=== PATIENT | female | born 1960 | race Caucasian/White ===

== ENCOUNTER 2021-09-21 06:00 | Day surgery (SDC) | payer OTHER, SELFPAY ==
[2021-09-15 10:58] VITALS: BMI 31.0
--- NOTE | 2021-09-20 09:09 | HO.ANESPROP2 ---
Documented by User: Carola Cook NP 09/20/21 09:09 HPI - Anesthesia Eval Consult details Narrative: 60yo F for Right 1st Metatarsal ORIF, cheilectomy 1st MP joint PCP Cleared PMFSH Past Medical History Medical History (Updated 09/21/21 @ 08:12 by Lydia Gandhi MD) Asthma Elevated cholesterol GERD (gastroesophageal reflux disease) Glaucoma History of COVID-19 Posterior vitreous detachment of both eyes Sleep apnea Surgical History Surgical History (Updated 09/15/21 @ 10:53 by Cesia Bingham RN) H/O colonoscopy History of History of esophagogastroduodenoscopy (EGD) Hx of appendectomy Hx of dilation and curettage Hx of total hysterectomy with removal of both tubes and ovaries Hx of tubal ligation Social History Social History (Updated 09/15/21 @ 10:57 by Cesia Bingham RN) Patient Tobacco Use Status: Never used Tobacco Use of substances other than those prescribed or required for medical reasons: No Are you DNR?: No Advance Directives: No Advance Directives Information Provided: Yes Recently lost weight without trying: No Nutrition Risks: No Nutritional Risk Meds Allergies Allergy/AdvReac Type Severity Reaction Status Date / Time Seasonal Allergies Allergy Intermediate Itchy Verified 09/15/21 10:56 Eyes/congestion Home Medications Medication Instructions Recorded Confirmed Last Taken Type albuterol sulfate 90 mcg/actuation 2 puff inhalation QID PRN Wheezing 09/15/21 09/15/21 Unknown History aerosol inhaler (Ventolin HFA) fluticasone propionate 100 1 inh inhalation BID 09/15/21 09/15/21 Unknown History mcg/actuation blister powder for inhalation (Flovent Diskus) loratadine 5 mg-pseudoephedrine ER 1 tab PO Q12H PRN Allergy Symptoms 09/15/21 09/15/21 Unknown History 120 mg tablet,extended release,12hr (Claritin-D 12 Hour) sulindac 150 mg tablet 150 mg PO BID PRN Pain 09/15/21 09/15/21 Unknown History Exam Exam Date and Time: September 20, 2021 09 Height,Weight and Vital Signs: Height 5 ft 5 in Weight 84.7 kg Assessment and Plan Assessment Anesthesia Assessment: Chart Reviewed Documented by User: Lydia Gandhi MD 09/21/21 08:14 PMF Active Problems Active Problems: Asthma- inhaler last used last year JERICA on CPAP Past Medical History Medical History (Updated 09/21/21 @ 08:12 by Lydia Gandhi MD) Asthma Elevated cholesterol GERD (gastroesophageal reflux disease) Glaucoma History of COVID-19 Posterior vitreous detachment of both eyes Sleep apnea Family History Family history of problems with anesthesia: No Surgical History Surgical History (Updated 09/15/21 @ 10:53 by Cesia Bingham RN) H/O colonoscopy History of History of esophagogastroduodenoscopy (EGD) Hx of appendectomy Hx of dilation and curettage Hx of total hysterectomy with removal of both tubes and ovaries Hx of tubal ligation History of Problems with Anesthesia: No Social History Social History (Updated 09/15/21 @ 10:57 by Cesia Bingham RN) Patient Tobacco Use Status: Never used Tobacco Use of substances other than those prescribed or required for medical reasons: No Are you DNR?: No Advance Directives: No Advance Directives Information Provided: Yes Recently lost weight without trying: No Nutrition Risks: No Nutritional Risk Meds Allergies Allergy/AdvReac Type Severity Reaction Status Date / Time Seasonal Allergies Allergy Intermediate Itchy Verified 09/15/21 10:56 Eyes/congestion Home Medications Medication Instructions Recorded Confirmed Last Taken Type albuterol sulfate 90 mcg/actuation 2 puff inhalation QID PRN Wheezing 09/15/21 09/15/21 Unknown History aerosol inhaler (Ventolin HFA) fluticasone propionate 100 1 inh inhalation BID 09/15/21 09/15/21 Unknown History mcg/actuation blister powder for inhalation (Flovent Diskus) loratadine 5 mg-pseudoephedrine ER 1 tab PO Q12H PRN Allergy Symptoms 09/15/21 09/15/21 Unknown History 120 mg tablet,extended release,12hr (Claritin-D 12 Hour) sulindac 150 mg tablet 150 mg PO BID PRN Pain 07/28/22 07/28/22 Unknown History Exam Height,Weight and Vital Signs: Height 5 ft 5 in Weight 84.7 kg Vital Signs Temp Pulse Resp BP Pulse Ox O2 Del Method 09/21/21 07:35 97.6 F 87 16 160/87 H 99 Room Air Airway Mallampati Class: II TM Dist: >3cm Neck ROM: Full Loose/Missing/Broken Teeth: No (No loose or broken teeth per patient ) Heart: RRR Lungs: CTAB Assessment and Plan Assessment Anesthesia Assessment: Anesthesia Plan Discussed Final Anesthetic Review Family History of Problems with Anesthesia: No History of Problems with Anesthesia: No NPO: Yes ASA Class: III Final Preanesthetic Review: No Changes in Pt Med Stat, Meds/Allgs Chart Reviewed, Consent Obtained/Reviewed and Anes Risks/Benef Reviewed Patient Risk: Intermediate Procedure Risk: Low Assessment/Block/Sedation in SS: Assess/Block/Sedation-SS Anesthetic Plan Anesthetic Plan: MAC: Disposition: Standard PACU
--- NOTE | ~2021-09-21 | FL_ITS ---
EXAMINATION: XR FLUOROSCOPY WITH IMAGES CLINICAL INFORMATION: Right 1st metatarsal ORIF COMPARISON: None. TECHNIQUE: Fluoroscopy performed by Hubert Botello. Fluoroscopy time: 16.7 seconds. Cumulative Dose: 0.3307 mGy DAP: 0.02 Gy-cm2. Images: 1. FINDINGS: AP view of the toes. There is air in the soft tissues adjacent to the 1st MTP joint. There is arthritis at the 1st MTP joint. FL/FL guidance in OR IMPRESSION: Intraoperative fluoroscopic guidance provided.
[2021-09-21 06:12] VITALS: BMI 29.8
[2021-09-21] MEDS: Lactated Ringers 1,000 ML 100 ML IVCONT (06:36)
[2021-09-21 07:35] VITALS: BP 160/87; PULSE 87; RESP 16; TEMP 36.4; O2SAT 99
[2021-09-21 08:51] VITALS: BP 120/71; PULSE 81; RESP 16; TEMP 36.4; O2SAT 99
[2021-09-21 08:56] VITALS: BP 127/82; PULSE 78; RESP 18; O2SAT 97
[2021-09-21 09:02] VITALS: BP 124/88; PULSE 74; RESP 18; O2SAT 99
[2021-09-21 09:06] VITALS: BP 116/83; PULSE 68; RESP 16; O2SAT 99
[2021-09-21 09:21] VITALS: BP 126/67; PULSE 70; RESP 16; TEMP 36.4; O2SAT 100
--- NOTE | 2021-09-22 11:20 | OP_ITS ---
SURGEON: Conor Jeffries DPM INDICATIONS: The patient has been a patient of mine for some time now. Has an extremely painful bunion and limited joint motion of her right first MPJ. The patient also separately has a fracture within the joint of the proximal phalanx and first metatarsal dorsolaterally. The patient states that every step that she took, it was pain and conservative treatment had been exhausted. The patient understood all risks and benefits including infection and the possibility of the surgery may not be successful. Due to the fact that this fracture fragment had been in there a long time and the joint may have arthritic destruction in there, the patient consented to surgery on the above date for the above surgeon. PREOPERATIVE DIAGNOSIS: POSTOPERATIVE DIAGNOSIS: PROCEDURE PERFORMED: 1. Cheilectomy and remodeling of the first metatarsophalangeal joint. 2. Fracture removal of the proximal phalanx and first metatarsophalangeal joint of the right foot. ESTIMATED BLOOD LOSS: None. COMPLICATIONS: ANESTHESIA: Monitored anesthesia care with 23 mL of 50:50 mixture of 1% lidocaine and 0.5% ropivacaine. ASSISTANTS: SPECIMENS: PREOPERATIVE DIAGNOSES: 1. Painful right bunion with hallux rigidus limitus. 2. Fracture of the first metatarsophalangeal joint of the right foot. POSTOPERATIVE DIAGNOSES: 1. Painful right bunion with hallux rigidus limitus. 2. Fracture of the first metatarsophalangeal joint of the right foot. HEMOSTASIS: None. PATHOLOGY: Fractured bone. MATERIALS: 3-0 Vicryl and 3-0 nylon. INJECTABLES: The patient received 30 of Toradol intraoperatively and antibiotic from the anesthesiologist during the procedure. CONDITION: The patient tolerated the anesthesia and procedure well. The patient was sent to recovery area in good stable condition with vital signs stable as per Anesthesia and must be noted that there was good reperfusion of all digits of the right foot following of the procedure. DESCRIPTION OF PROCEDURE: The patient was brought into the operating room via gurney and placed on the operating room table in the supine position. Once adequate intravenous sedation was achieved, the above mentioned mixture of local anesthetic was injected into the right foot. The right foot was prepped and draped in a normal sterile fashion. A 15 blade was used in order to make an incision over the dorsolateral aspect of the first metatarsophalangeal joint of the right foot. Blunt and sharp dissections were used to go down all the way to the capsule of the first metatarsophalangeal joint. Neurovascular structures were identified, marked and retracted. All venous structures were ligated with Bovie and retracted. It must be noted that extensor hallucis longus was identified and retracted as well. Next, 15 blade was used in order to first make an incision into the capsule of the first metatarsophalangeal joint with a capsule and periosteum were adequately reflected off the head of the metatarsal. Once adequate exposure of the head in the metatarsal was achieved, a rongeur as well as a bone saw was used in order to decrease the amount of hallux limitus and rigidus and joint arthritis along the edges of the bone including medially, laterally and dorsally. It must be noted that there was significant destruction to the cartilage seen in the joint. Once it was done, copious amounts of normal sterile saline we used in order to lavage the area and all bone shards were removed. This was confirmed with a portable x-ray machine that the joint had much better joint motion and there were no shards left in there. Once this was confirmed, I must be noted that second incision was made distally into the area where a large fractured bone fragment had been for sometime and a careful dissection was used to in order to go down to that bone fragments. It must be noted that there was a fragment also at the metatarsal and that was removed along with a cheilectomy, but this fragment was partially attached also to the proximal phalanx with a soft tissue attachment. The bone fragment was large and sent to pathology. Once this was done, copious amount of normal sterile saline in order to lavage the area and it was noted that was better movement of the joint. Once again, the joint had destruction in it of the cartilage, but there was good joint space and good movement. All fracture fragments were removed and it was confirmed with a portable x-ray machine intraoperatively. Once this was done, 3-0 Vicryl was used in order to sew up the deep layers and 3-0 Vicryl in order to sew up underneath the skin and then 3-0 Prolene was used in order to sew up the skin layers. It must be noted that any redundant tissue was removed. The area must be noted that Xeroform was placed over the incision site with fluff, Yadi, Palomo bandage and stockinette. The patient was wheeled to the recovery room in stable condition via anesthesia. Vital signs were stable. It must be noted that the patient was given all postop pain med and antibiotics. The patient will follow up with myself in a few days' time. IMPORT CUSTOMER SERVICE MANAGER: None. NEHAL Mitchell/BIANCA / [id number]
== END 2021-09-21 09:59 | disposition home or self-care (01) ==
PROVIDERS: PCP Family Medicine; Visit Provider Podiatrist
PROC: (CPT 28485; principal; 2021-09-21 07:30)
DX: S92.311A Displaced fracture of first metatarsal bone, right foot, initial encounter for closed fracture (principal); M20.21 Hallux rigidus, right foot; X58.XXXA Exposure to other specified factors, initial encounter; Y93.9 Activity, unspecified; Y92.9 Unspecified place or not applicable; Y99.8 Other external cause status
CPT/HCPCS: 28289; 28022; 88304; 88311; J0690; J1885; J2250; J2405; J2795; J3010